=== PATIENT | female | born 1990 | race Asian ===

== ENCOUNTER 2024-06-01 12:17 | Emergency (ER) | payer OTHER, SELFPAY ==
--- NOTE | 2024-06-01 12:32 | ED.GENMED ---
History of Present Illness
General
Chief Complaint: Problems
Source: patient
Exam Limitations: none
Time Seen by Provider: 06/01/24 12:22
History of Present Illness
History of Present Illness:
See MDM
Past History
Past History
ED Past Medical History: None
ED Past Surgical History: None
Social History
Tobacco: Non-smoker
Alcohol: None
Phy Exam
Physical Exam
Physical Exam:
See MDM
Course
Orders/Labs/Results
Orders:
Orders
06/01/24 12:31
Electrocardiogram (*1) Urgent
Reason for Study: Chest Pain
EKG- Treatment ONCE
Complete Blood Count/With Diff Urgent
Comprehensive Metabolic Panel Urgent
Troponin I Urgent
06/01/24 12:45
Heart Tones ONCE
Abnormal Lab Results
06/01/24
12:51
POC Glucose 138 H mg/dl
(70-99)
Vital Signs
Initial and Last Documented VS:
Initial Vital Signs
Temp Pulse Resp BP Pulse Ox
98.1 F 72 18 97/56 99
06/01/24 12:37 06/01/24 12:37 06/01/24 12:37 06/01/24 12:37 06/01/24 12:37
Last Documented Vital Signs
Temp Pulse Resp BP Pulse Ox
98.1 F 72 18 97/56 99
06/01/24 12:37 06/01/24 12:37 06/01/24 12:37 06/01/24 12:37 06/01/24 12:37
Information
Weeks gestation: Weeks: (17)
Location: Location: ([facility] per pt)
MDM/Problems Addressed
Differential Diagnosis Includes:
HPI and MDM Narrative:
33-year-old female G2, P1 presenting at about 17 weeks gestation complaining of chest discomfort. [facility] is [facility] from [facility]. She denies vaginal bleeding or loss of fluid. Her chest related symptoms appear to be worse with food
intake. She complains of central chest discomfort where she points to her epigastric region. She states it is worse after she eats. She denies pain with deep inspiration. On exam, she is neither tachycardic nor hypoxic. She has no leg edema or
tenderness to consider DVT or PE
Patient states that she has already had an ultrasound of this and believes everything was okay. I did offer chest x-ray but patient declined given the radiation risk. Will obtain EKG and basic blood work but otherwise discussed likely
GERD related symptoms
Physical exam
General: Well appearing and non-toxic
HEENT: protecting airway
Neck: appears supple
CV: No evidence of cyanosis. Regular rate and rhythm
Resp: No accessory muscle use. Lungs clear
Abd: Non-distended. Soft and nontender
Extremities: No deformities. No leg edema or tenderness
Neuro: alert
Psych: Normal affect
Skin: Intact
Problems Addressed including Acute and Chronic Conditions affecting care:
1. Chest discomfort
Acuity: acute
Prognosis: stable
Details: Symptoms are worse after she eats. Discussed likely gastritis versus GERD related symptoms. Will obtain basic blood work and EKG
2. Abdominal pain
Acuity: acute
Prognosis: stable
Details: Discussed likely round ligament pain. She has no tenderness on my exam. Will obtain heart tones. She denies loss of fluid or blood
3. [ ]
Acuity: acute
Prognosis: stable
Details:
4. [ ]
Acuity: acute
Prognosis: stable
Details:
5. [ ]
Acuity:
Prognosis:
Details:
Updates
Patient refusing all lab draw
EKG within normal limits
heart tones 152 bpm. Patient remains well-appearing nontoxic. Discussed return precautions and follow-up with OB
Differential Diagnosis (but not limited to): Round ligament pain, gastritis, costochondritis
Testing considered: Chest x-ray with patient declined
Drug therapy (if applicable): OTC meds, please see d/c instruction regarding Rx drugs
Amount and/or Complexity of Data Reviewed
Clinical info obtained from: Patient
External data reviewed: N/A
Labs I independently reviewed (but not limited to): Blood sugar 138
Radiology: N/A
Pulse Ox: not hypoxic
EKG independently reviewed: Sinus rhythm, normal axis, no STEMI
Speech Clinician: Sinus rhythm
Critical Care: N/A
Risk of Complication:
Social Determinants of health: Good social support
Discussed with other providers: N/A
Escalation of Care includes Admit/Obs: After being observed in the Emergency Department, pt stable for discharge.
Occasional wrong word or 'sound a like' substitutions may have occurred due to the inherent limitations of voice recognition software. Read the chart carefully and recognize, using context, where substitutions have occurred.
*Critical Care Note
Total Time (30-74mins, 75-104mins- exclusive of procedures): Not Applicable
ED Attending Note
-
Portions of this chart may have been created with voice recognition software.� Occasional wrong word or��sound alike� substitutions may have occurred due to the inherent limitations of voice recognition software.
Discharge Plan
Departure
Patient Disposition: Nursing Home
Date of Disposition: 06/01/24
Time of Disposition: 14:21
Patient with high blood pressure during this ER visit?: No
Discharge Problem:
Gastritis
Instructions: symptoms
Referrals:
[facility] [Family Provider] -
Activity Restrictions/Additional Instructions:
Please follow-up with your [facility] at next available appointment. Please return for worsening symptoms.
Winston Perdomo is otherwise medically stable for incarceration
Interventions
Interventions:
*Risk Screen - Suicide Last Done: 06/01/24 12:37
*General Assessment Last Done: 06/01/24 12:37
*Neglect/Abuse Screening Last Done: 06/01/24 12:37
ED-Female Genitourinary Assessment Last Done: 06/01/24 13:51
Discharge Date and Time
Print Language: Mandarin Welsh
[2024-06-01 12:37] VITALS: BP 97/56
[2024-06-01 12:53] LABS: Glucose - Point of Care 138 mg/dl (70-99)
== END 2024-06-01 14:21 ==
LOC: EMR 12:17
PROVIDERS: EMERGENCY PHYSICIAN Student in an Organized Health Care Education/Training Program
DX: O26.892 Other specified pregnancy related conditions, second trimester (principal); K29.70 Gastritis, unspecified, without bleeding
CPT/HCPCS: 99284; 82962; 93005

== ENCOUNTER 2024-06-13 17:51 | Emergency (ER) | payer OTHER, SELFPAY ==
[2024-06-13 17:59] VITALS: BP 104/57
[2024-06-13 19:00] VITALS: BP 94/64
[2024-06-13] MEDS: BENADRYL 25 MG PO (20:07)
[2024-06-13 20:08] LABS: % Basophils 0.2 % (0-2); % Eosinophils 0.8 % (0-6); % Immature Granulocytes 0.3 % (0-0.5); % Lymphocytes 23.8 % (20.5-51.1); % Monocytes 7.3 % (1.7-9.3); % Neutrophils 67.6 % (42.2-75.2); Absolute Eosinophils 0.1 10^3/uL (0-0.7); Absolute Lymphocytes 2.2 10^3/uL (1.2-3.4); Absolute Monocytes 0.7 10^3/uL (0.1-0.6); Absolute Neutrophils 6.1 10^3/uL (1.4-6.5); Hematocrit 30.4 % (37.0-47.0); Hemoglobin 10.6 g/dL (12.0-16.0); Mean Corp Hgb Conc. 34.9 g/dL (33.0-37.0); Mean Corpuscular Volume 88.9 fL (81.0-99.0); Mean Platelet Volume 10.2 fL (7.4-10.4); Nucleated Red Blood Cells % 0 %; Platelet Count 258 10^3/uL (130-400); Red Blood Cell Count 3.42 10^6/uL (4.20-5.40); Red Cell Dist. Width 12.7 % (11.5-14.5); White Blood Cell Count 9.1 10^3/uL (4.8-10.8)
[2024-06-13 20:14] LABS: Urine Albumin Negative (Neg - Trace); Urine Bilirubin Negative (Negative); Urine Character Clear (Clear); Urine Color Yellow; Urine Glucose 3+ (Negative); Urine Ketone Negative (Negative); Urine Leukocyte 3+ (Negative); Urine Nitrite Negative (Negative); Urine Occult Blood Negative (Negative); Urine Urobilinogen Negative (Neg - 1+)
[2024-06-13 20:18] LABS: ALT (SGPT) < 10 U/L (0-35); AST (SGOT) 11 U/L (14-36); Albumin 3.8 g/dl (3.5-5.0); Alkaline Phosphatase 36 U/L (38-126); Blood Urea Nitrogen 8 mg/dl (7-17); Calcium 10.3 mg/dl (8.4-10.2); Carbon Dioxide 22 mmol/L (22-30); Chloride 108 mmol/L (98-107); Glucose 112 mg/dl (70-99); Potassium 4.7 mmol/L (3.5-5.1); Sodium 138 mmol/L (135-145); Total Bilirubin 0.3 mg/dl (0.2-1.3); Total Protein 6.2 g/dl (6.3-8.2); eGFR > 60.00
[2024-06-13 20:23] LABS: Urine Squamous Cell >30 /LPF (Few)
[2024-06-13 20:24] LABS: Urine Bacteria Many (Negative); Urine Red Blood Cell 0-2 /HPF (0-2); Urine White Cell 26-30 /HPF (0-5)
--- NOTE | 2024-06-13 20:38 | ED.GENMED ---
History of Present Illness
General
Chief Complaint: Skin Problem
Time Seen by Provider: 06/13/24 19:30
History of Present Illness
History of Present Illness:
33-year-old female, 19 weeks by dates, presenting from correctional facility for rash. Patient reports for the past week she has had a pruritic rash to her abdomen of unclear etiology. She denies any new exposures. At the correctional
facility, has been getting topical hydrocortisone. Denies any vaginal bleeding or leakage of fluids. Denies urinary complaints. Denies chest pain or difficulty breathing. Denies fever or recent illness. Denies any improvement with the topical
hydrocortisone. Denies additional acute medical complaints
Past History
Past History
ED Past Medical History: None
ED Past Surgical History: None
Social History
Tobacco: Non-smoker
Alcohol: None
Phy Exam
Physical Exam
Physical Exam:
General: Well-appearing, no clinical signs of dehydration, nontoxic and in no acute distress
HEENT: protecting airway
Neck: appears supple
CV: Normal heart rate, regular rhythm
Resp: No accessory muscle use, no increased work of breathing, lungs clear to auscultation bilaterally
Abd: Soft and non-distended, no tenderness to palpation. Erythematous and pruritic rash to the anterior abdomen with excoriations
Extremities: No deformities, no swelling
Neuro: alert, no focal neurologic deficit
: deferred
Rectal: deferred
Psych: Normal affect
Skin: Intact
Course
Orders/Labs/Results
Orders:
Orders
06/13/24 19:56
Diphenhydramine [Benadryl] 25 mg PO NOW STA
06/13/24 19:57
Complete Blood Count/With Diff Urgent
Comprehensive Metabolic Panel Urgent
06/13/24 20:09
Urinalysis Urgent
Date Specimen was Collected: 06/13/24
Time Specimen was Collected: 19:59
Urine Microscopic Urgent
Date Specimen was Collected: 06/13/24
Time Specimen was Collected: 19:59
06/13/24 20:34
Cephalexin Monohydrate [Keflex] 500 mg PO NOW STA
06/13/24 20:36
Prednisone [Deltasone] 40 mg PO ONCE ONE
Abnormal Lab Results
06/13/24 06/13/24
19:57 20:09
RBC 3.42 L 10^6/uL
(4.20-5.40)
Hgb 10.6 L g/dL
(12.0-16.0)
Hct 30.4 L %
(37.0-47.0)
Absolute Monos (auto) 0.7 H 10^3/uL
(0.1-0.6)
Chloride 108 H mmol/L
(98-107)
Creatinine 0.4 L mg/dL
(0.6-1.0)
Glucose 112 H mg/dl
(70-99)
Calcium 10.3 H mg/dl
(8.4-10.2)
AST 11 L U/L
(14-36)
Alkaline Phosphatase 36 L U/L
(38-126)
Total Protein 6.2 L g/dl
(6.3-8.2)
Ur Leukocyte Esterase 3+ A
(Negative)
Urine WBC 26-30 A /HPF
(0-5)
Urine Bacteria Many A
(Negative)
Urine Glucose 3+ A
(Negative)
06/13/24 19:57
06/13/24 19:57
Vital Signs
Initial and Last Documented VS:
Initial Vital Signs
Temp Pulse Resp BP Pulse Ox
98.6 F 71 16 104/57 99
06/13/24 17:59 06/13/24 17:59 06/13/24 17:59 06/13/24 17:59 06/13/24 17:59
Last Documented Vital Signs
Temp Pulse Resp BP Pulse Ox
98.6 F 77 22 94/64 98
06/13/24 17:59 06/13/24 19:30 06/13/24 19:30 06/13/24 19:00 06/13/24 19:30
MDM/Problems Addressed
MDM/Problems Addressed:
33-year-old female at 19 weeks presenting for abdominal rash. Vital signs on arrival are normal.
On exam patient is resting comfortably, no acute distress or discomfort. On examination of patient's rash, appears urticarial in quality, excoriations. It is concentrated to the entire abdomen. Suspect contact rash versus PUPPP. Patient is
constantly itching at the rash, has had no success with topical steroids, will try course of oral steroids. Will screen with laboratory analysis and urinalysis. Bedside ultrasound showed normal heart rate at 152, 19 weeks by [facility].
20:40 - Labs unremarkable. Patient with known history of gestational diabetes. At this time feel stable for discharge. Urine does have leukocytes and bacteria, so we will treat as urinary tract infection in the setting of . Will provide
prescription for oral steroid. Advised Benadryl for itching. Return precautions discussed and patient verbalized understanding
*Critical Care Note
Total Time (30-74mins, 75-104mins- exclusive of procedures): Not Applicable
ED Attending Note
-
Portions of this chart may have been created with voice recognition software.� Occasional wrong word or��sound alike� substitutions may have occurred due to the inherent limitations of voice recognition software.
Discharge Plan
Departure
Referrals:
[facility] [Family Provider] -
Interventions
Interventions:
*Risk Screen - Suicide Last Done: 06/13/24 18:10
*General Assessment Last Done: 06/13/24 18:10
*Neglect/Abuse Screening Last Done: 06/13/24 18:10
*ED- Fall Risk Assessment Last Done: 06/13/24 18:10
*ED COVID-19 Vaccine History Last Done: 06/13/24 18:10
ED-Skin Assessment Last Done: 06/13/24 18:15
Discharge Date and Time
Print Language: Mandarin [place]
[2024-06-13] MEDS: DELTASONE 40 MG PO (20:43)
[2024-06-13] MEDS: KEFLEX 500 MG PO (20:43)
[2024-06-13 20:49] VITALS: BP 106/57
== END 2024-06-13 20:59 | disposition home or self-care (01) ==
LOC: EMR 17:51
PROVIDERS: EMERGENCY PHYSICIAN Student in an Organized Health Care Education/Training Program
DX: O23.42 Unspecified infection of urinary tract in pregnancy, second trimester (principal); O99.891 Other specified diseases and conditions complicating pregnancy; R21 Rash and other nonspecific skin eruption; O24.419 Gestational diabetes mellitus in pregnancy, unspecified control; Z3A.19 19 weeks gestation of pregnancy
CPT/HCPCS: 99283; 80053; 81003; 81015; 85025

== ENCOUNTER 2024-07-02 10:20 | Emergency (ER) | payer OTHER, SELFPAY ==
[2024-07-02 11:00] VITALS: BP 91/55
[2024-07-02 11:13] VITALS: BMI 25.1
--- NOTE | 2024-07-02 11:49 | ED.GENMED ---
History of Present Illness
General
Chief Complaint: Abdominal Pain
Source: patient
Exam Limitations: none
Time Seen by Provider: 07/02/24 11:27
History of Present Illness
History of Present Illness:
pt is a 33 y/o F incarcerated
approx 20 weeks
here with pelvic pain x 3 days
says it feels like sharp pain that comes spontaneously, nto with movement and not really produced by any activity like urinating etc
she has also had vaginal discahrge, greenish without itchiness
no dysuria, hematuria, fever, chills
pt has had ongoign rash on her abdomena nd L flank region thought to be related to PUPP; putting hydrocortisone on it, and iti s improving overall, ahs had it for several weeks
pt was here a efw weeks ago for chest pain which resolved, she has no chest pain now
she [facility]
last stool 3 days ago
pt denies sexual activity
has been incarcerated since april
Past History
Past History
ED Past Medical History: None
ED Past Surgical History: None
Social History
Tobacco: Non-smoker
Alcohol: None
Review of Systems
Review of Systems
Allergies reviewed?: Yes
All Other Systems: Not applicable
Phy Exam
Physical Exam
Physical Exam:
GENERAL: Alert , in no apparent distress
EYE: pupils equal and reactive
NECK: Supple
ENT: o/p clr, mmm.
CARDIAC: Regular rate and rhythm .
LUNGS: Clear breath sounds bilaterally, no acute respiratory distress, no wheezes/rales/rhonchi
ABDOMEN: Soft mild b/l pelvic tenderness; uterus gravid; no r/g, no cvat, normal bowel sounds
: normal external exam
internal exam with moderate greenish thicker discharge; no bleeding
cervicx closed
nontender, no CMT
no adnexal tenderness
NEUROLOGICAL: Alert and oriented, no focal neuro deficits
SKIN: Warm and dry, skin intact.
MUSCULOSKELETAL: No edema, well perfused. neg dev's sign
PSYCH: Normal and appropriate interaction.
Course
Orders/Labs/Results
Orders:
Orders
07/02/24 11:50
US Limited Urgent
Reason For Exam: pelvic pain, vag discharge, 20 weeks preg
07/02/24 11:59
Complete Blood Count/With Diff Urgent
Comprehensive Metabolic Panel Urgent
Urinalysis Reflex To Culture Urgent
Specimen Description:
Date Specimen was Collected: 07/02/24
Time Specimen was Collected: 11:56
Urine Microscopic Reflex Cult Urgent
Chlamydia/GC by PCR Urgent
C[facility] Source: Endo-Cervical
Specimen Description:
Source:: ENDOCERVICAL
Date Specimen was Collected: 07/02/24
Time Specimen was Collected: 11:56
Genital Culture Urgent
[facility] Source: Cervix
Specimen Description:
Date Specimen was Collected: 07/02/24
Time Specimen was Collected: 11:56
Trichomonas - Wet Prep Urgent
[facility] Source: Vagina
Specimen Description:
Date Specimen was Collected: 07/02/24
Time Specimen was Collected: 11:56
Urine Culture Urgent
C[facility]IDO Source: U
Specimen Description:
Date Specimen was Collected: 07/02/24
Time Specimen was Collected: 11:56
07/02/24 12:39
0.9% Sodium Chloride 500 ml [Nss] 500 ml IV BOLUS
Abnormal Lab Results
07/02/24
11:59
RBC 3.30 L 10^6/uL
(4.20-5.40)
Hgb 10.3 L g/dL
(12.0-16.0)
Hct 30.5 L %
(37.0-47.0)
MCH 31.2 H pg
(27.0-31.0)
MPV 10.5 H fL
(7.4-10.4)
Abs Immat Gran (auto) 0.1 H 10^3/uL
(0-0.05)
Absolute Neuts (auto) 6.9 H 10^3/uL
(1.4-6.5)
Immature Gran % 0.7 H %
(0-0.5)
Neutrophils % 76.9 H %
(42.2-75.2)
Lymphocytes % 15.5 L %
(20.5-51.1)
Chloride 110 H mmol/L
(98-107)
Creatinine 0.4 L mg/dL
(0.6-1.0)
Glucose 152 H mg/dl
(70-99)
AST 11 L U/L
(14-36)
Alkaline Phosphatase 35 L U/L
(38-126)
Total Protein 6.1 L g/dl
(6.3-8.2)
Albumin 3.1 L g/dl
(3.5-5.0)
Leukocyte Esterase Rfl 3+ A
(Negative)
Urine WBC (Reflex) 11-15 A /HPF
(0-5)
Urine Bacteria (Reflex) Few A
(Negative)
Urine Glucose 3+ A
(Negative)
07/02/24 11:59
07/02/24 11:59
Vital Signs
Initial and Last Documented VS:
Initial Vital Signs
Pulse Resp BP Pulse Ox
78 16 91/55 99
07/02/24 11:00 07/02/24 11:00 07/02/24 11:00 07/02/24 11:00
Last Documented Vital Signs
Temp Pulse Resp BP Pulse Ox
37.0 C 78 18 98/54 99
07/02/24 16:07 07/02/24 17:14 07/02/24 17:14 07/02/24 17:14 07/02/24 17:14
MDM/Problems Addressed
Differential Diagnosis Includes:
bv, sti, vaginitis, round ligament pain, constipation, ovarian cyst
less likely appendicitis
MDM/Problems Addressed:
33 y/o F
20 weeks preg
incarcerated
here with b/l pelvic pain comes and goes
sometimes with movement
vag discharge x 3 days
has had ongoing changing itchy rash to abdomen, tretaed with Hydrocortisone
improving
has seen OB at [facility]
pt has no fever/chills, vomiting
she is not overly tender
gravid uterus
green thickish discharge
no erythema
os closed
no bleeding
US shows [facility] and ovaries look normal
no placenta previa
wbc normal
bg stable
ua contaminated likely; given the amoutn of discharge, i feel very confident this is contaminated
her gc/ct/trich were neg
will treat with flagyl for BV
d/w dr. olivas from OB/GYNE given she is 20 weeks with pelvic pain; [facility]
*Critical Care Note
Total Time (30-74mins, 75-104mins- exclusive of procedures): Not Applicable
ED Attending Note
-
Portions of this chart may have been created with voice recognition software.� Occasional wrong word or��sound alike� substitutions may have occurred due to the inherent limitations of voice recognition software.
Discharge Plan
Departure
Patient Disposition: Home (Routine Discharge)
Date of Disposition: 07/02/24
Time of Disposition: 16:57
Patient with high blood pressure during this ER visit?: No
Condition: Fair
Covid-19: Not Applicable
Discharge Problem:
Vaginitis
Instructions: Pelvic pain - ED discharge instructions
Prescriptions:
New
metronidazole 500 mg tablet
500 mg PO BID Qty: 14 0RF
No Action
aspirin 81 mg Tablet,Delayed Release (Dr/Ec)
81 mg PO DAILY
calcium carbonate [Tums] 200 mg calcium (500 mg) Tablet,Chewable
400 mg PO BIDPRN PRN (Reason: gerd)
docusate sodium [Colace] 100 mg Capsule
100 mg PO DAILY
PNV cmb#95-ferrous fumarate-FA [] 28 mg iron- 800 mcg Tablet
1 tab PO DAILY
hydrocortisone 1 % cream
1 applic topical TID
Referrals:
[facility] [Family Provider] -
Activity Restrictions/Additional Instructions:
YOUR LOOKS GOOD, NORMAL HEART RATE; THE BABY IS BREECH. MEASURING 21 WEEKS
THE OVARIES LOOK NORMAL
YOUR PAIN COULD BE FROM THE LIGAMENTS STRETCHING DURING
YOUR DISCHARGE IS PROBABLY A BACTERIAL INFECTION
USE THE FLAGYL TWICE A DAY FOR 7 DAYS
YOU TESTED NEGATIVE FOR GONORRHEA, CHLAMYDIA AND TRICHOMONAS
IF THE FLAGYL DOESN'T HELP, IT MAY BE A YEAST INFECTION.
RETURN FOR ANY COCNERNS.
Interventions
Interventions:
*Risk Screen - Suicide Last Done: 07/02/24 11:11
*General Assessment Last Done: 07/02/24 11:11
*Neglect/Abuse Screening Last Done: 07/02/24 11:11
*ED- Fall Risk Assessment Last Done: 07/02/24 11:00
*ED COVID-19 Vaccine History Last Done: 07/02/24 11:00
*Nursing Disposition Last Done: 07/02/24 17:30
FN-Qjamce-Pgmdmkhgdk Assessment Last Done: 07/02/24 11:14
Discharge Date and Time
Discharge Date/Time: 07/02/24 17:31
Print Language: Mandarin Indonesian
[2024-07-02 12:15] LABS: % Basophils 0.2 % (0-2); % Eosinophils 0.7 % (0-6); % Immature Granulocytes 0.7 % (0-0.5); % Lymphocytes 15.5 % (20.5-51.1); % Neutrophils 76.9 % (42.2-75.2); Absolute Eosinophils 0.1 10^3/uL (0-0.7); Absolute Immature Granulocytes 0.1 10^3/uL (0-0.05); Absolute Lymphocytes 1.4 10^3/uL (1.2-3.4); Absolute Monocytes 0.5 10^3/uL (0.1-0.6); Absolute Neutrophils 6.9 10^3/uL (1.4-6.5); Hematocrit 30.5 % (37.0-47.0); Hemoglobin 10.3 g/dL (12.0-16.0); Mean Corp Hgb Conc. 33.8 g/dL (33.0-37.0); Mean Corpuscular Hgb 31.2 pg (27.0-31.0); Mean Corpuscular Volume 92.4 fL (81.0-99.0); Mean Platelet Volume 10.5 fL (7.4-10.4); Nucleated Red Blood Cells % 0 %; Platelet Count 249 10^3/uL (130-400); Red Cell Dist. Width 13.2 % (11.5-14.5)
[2024-07-02 12:27] LABS: ALT (SGPT) < 10 U/L (0-35); AST (SGOT) 11 U/L (14-36); Albumin 3.1 g/dl (3.5-5.0); Alkaline Phosphatase 35 U/L (38-126); Blood Urea Nitrogen 11 mg/dl (7-17); Calcium 9.8 mg/dl (8.4-10.2); Carbon Dioxide 25 mmol/L (22-30); Chloride 110 mmol/L (98-107); Estimated Creatinine Clearance 118 ml/min; Glucose 152 mg/dl (70-99); Potassium 4.6 mmol/L (3.5-5.1); Sodium 135 mmol/L (135-145); Total Bilirubin 0.2 mg/dl (0.2-1.3); Total Protein 6.1 g/dl (6.3-8.2); eGFR > 60.00
[2024-07-02 13:00] LABS: Urine Albumin Negative (Neg - Trace); Urine Bilirubin Negative (Negative); Urine Character Clear (Clear); Urine Color Yellow; Urine Glucose 3+ (Negative); Urine Ketone Negative (Negative); Urine Leukocyte 3+ (Negative); Urine Nitrite Negative (Negative); Urine Occult Blood Negative (Negative); Urine Urobilinogen Negative (Neg - 1+)
[2024-07-02 13:40] LABS: Urine Bacteria Few (Negative); Urine Red Blood Cell 0-2 /HPF (0-2); Urine Squamous Cell >30 /LPF (Few)
[2024-07-02 17:14] VITALS: BP 98/54
== END 2024-07-02 17:31 | disposition home or self-care (01) ==
LOC: EMR 10:20
PROVIDERS: Physician Assistant; EMERGENCY PHYSICIAN Emergency Medicine
DX: O23.592 Infection of other part of genital tract in pregnancy, second trimester (principal); Z3A.21 21 weeks gestation of pregnancy
CPT/HCPCS: 99284; 76815; 80053; 81003; 81015; 85025; 87070; 87086; 87210; 87491; 87591

== ENCOUNTER → 2024-07-20 10:38 | Outpatient (REF) | payer OTHER, SELFPAY | LOC: PNTC 10:38 | PROVIDERS: ATTENDING PHYSICIAN Obstetrics & Gynecology | DX: O24.414 Gestational diabetes mellitus in pregnancy, insulin controlled (principal); O09.522 Supervision of elderly multigravida, second trimester | CPT/HCPCS: 76811 ==

== ENCOUNTER → 2024-09-14 10:39 | Outpatient (REF) | payer OTHER, SELFPAY | LOC: PNTC 10:39 | PROVIDERS: ATTENDING PHYSICIAN Student in an Organized Health Care Education/Training Program | DX: O24.419 Gestational diabetes mellitus in pregnancy, unspecified control (principal) | CPT/HCPCS: 59025; 76816 ==

== ENCOUNTER → 2024-09-21 10:31 | Outpatient (REF) | payer OTHER, SELFPAY | LOC: PNTC 10:31 | PROVIDERS: ATTENDING PHYSICIAN Obstetrics & Gynecology | DX: O24.434 Gestational diabetes mellitus in the puerperium, insulin controlled (principal) | CPT/HCPCS: 59025; 76815 ==

== ENCOUNTER → 2024-09-29 10:42 | Outpatient (REF) | payer OTHER, SELFPAY | LOC: PNTC 10:42 | PROVIDERS: ATTENDING PHYSICIAN Obstetrics & Gynecology | DX: O24.414 Gestational diabetes mellitus in pregnancy, insulin controlled (principal) | CPT/HCPCS: 59025; 76818 ==